=== PATIENT | male | born 1970 | race African-American/Black ===

== ENCOUNTER 2017-11-28 10:53 | Emergency (ER) | payer OTHER ==
--- NOTE | 2017-11-28 11:55 | ED ---
Back Pain - HPI Summary HPI Summary: Patient presents with right lower back pain after "tucking and rolling" in a flag football game yesterday. He slipped which lead to fall - no tackle. Reports he had some Rt lower back and was given Tylenol at [facility] last night with minimal relief. He woke this morning and came to the hospital to have routine labs done and since he is still having pain and stiffness, decided to get his back checked out here in the ED. Reports pain is worse with bending and transitioning from sitting to standing. Patient also radiates on the lateral aspect of his leg not quite to the knee. Denies numbness, tingling, weakness, change in bowel/bladder habits. Has applied Bengay with little relief. No other injuries to report as result of fall. - History of Current Complaint Chief Complaint: EDBackInjuryPain Stated Complaint: BACK PAIN Time Seen by Provider: 11/28/17 11:16 Hx Obtained From: Patient Pain Intensity: 7 - Allergies/Home Medications Allergies/Adverse Reactions: Allergies Allergy/AdvReac Type Severity Reaction Status Date / Time celecoxib [From Celebrex] Allergy See Comment Verified 11/28/17 11:50 lactose Allergy GI Upset Verified 11/28/17 11:50 Penicillins Allergy Anaphylatic Verified 11/28/17 11:50 Shock PMH/Surg Hx/FS Hx/Imm Hx Previously Healthy: Yes Endocrine/Hematology History: Denies: Hx Anticoagulant Therapy, Hx Blood Disorders History: Reports: Other Problems/Disorders - 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 Musculoskeletal History: Reports: Hx Arthritis - spine Sensory History: Reports: Hx Contacts or Glasses Opthamlomology History: Reports: Hx Contacts or Glasses Infectious Disease History: No Infectious Disease History: Denies: Traveled Outside the [place] in Last 30 Days - Family History Known Family History: Positive: Unknown - Social History Occupation: Unemployed Lives: [place] - [facility] Alcohol Use: None Alcohol Amount: h/o - non currently Hx Substance Use: Yes - not currently Substance Use Type: Reports: Cocaine - and ETOH - at [facility] now Substance Use Comment - Amount & Last Used: denies Hx Tobacco Use: Yes Smoking Status (MU): Light Every Day Tobacco Smoker Review of Systems Constitutional: Negative Negative: Fever, Chills, Fatigue Eyes: Negative ENT: Negative Cardiovascular: Negative Respiratory: Negative Gastrointestinal: Negative Genitourinary: Negative Positive: Arthralgia, Myalgia Skin: Negative Neurological: Negative Psychological: Normal All Other Systems Reviewed And Are Negative: Yes Physical Exam Triage Information Reviewed: Yes Vital Signs On Initial Exam: Initial Vitals Temp Pulse Resp BP Pulse Ox 97.3 F 51 16 92/70 100 11/28/17 10:57 11/28/17 10:57 11/28/17 10:57 11/28/17 10:57 11/28/17 10:57 Vital Signs Reviewed: Yes Appearance: Positive: Well-Appearing, Pain Distress - mild - appears uncomfortable sitting in stretcher - cannot get comfortable; antalgic gait Skin: Positive: Warm, Skin Color Reflects Adequate Perfusion, Dry - no erythema , no ecchymosis Eyes: Positive: Normal, EOMI, Conjunctiva Clear ENT: Positive: Normal ENT inspection, Hearing grossly normal, Pharynx normal Neck: Positive: Supple Respiratory/Lung Sounds: Positive: Clear to Auscultation, Breath Sounds Present Cardiovascular: Positive: Normal, Pulses are Symmetrical in both Upper and Lower Extremities. Negative: Leg Edema Left, Leg Edema Right Musculoskeletal: Positive: Strength/ROM Intact - pain in Rt lower back w/ Rt hip abduction, flexion and extension while standing, Pain @ - QL is TTP and SI is TTP Neurological: Positive: Normal, Sensory/Motor Intact, Alert, Oriented to Person Place, Time, CN Intact II-III Psychiatric: Positive: Normal Diagnostics - Vital Signs Vital Signs Temp Pulse Resp BP Pulse Ox 11/28/17 10:57 97.3 F 51 16 92/70 100 - Laboratory Lab Statement: Any lab studies that have been ordered have been reviewed, and results considered in the medical decision making process. Back Pain Course/Dx - Course Course Of Treatment: XR: no acute findings. Exam suspicious for contusion/ strain. Conservative care w/ f/u. Danger s/sx reviewed w/ pt who agrees w/ plan. NSAID's not recommended as pt reports h/o renal injury from celebrex w/ pending court case. May continue acetaminophen and topical analgesics w/ time and rest. - Diagnoses Provider Diagnoses: Lumbar strain Discharge - Sign-Out/Discharge Documenting (check all that apply): Patient Departure - Discharge Plan Condition: Stable Disposition: HOME Prescriptions: Lidocaine PATCH 5%* [Lidoderm 5% Patch*] 1 patch TRANSDERM DAILY PRN #10 patch PRN Reason: Pain Patient Education Materials: Low Back Strain (ED), Lumbar Radiculopathy (ED) Forms: *Work Release Referrals: [facility] [Outside] Additional Instructions: Rest, ice alternate with heat and gentle stretches Continue acetaminophen 650mg every 6 hours with food for pain Topical analgesics - if you had relief with a lidoderm pain patch today, more have been sent to your pharmacy If pain persists, seek follow-up at [facility] - contact information provided here *If you develop numbness, weakness and/or change in bowel/bladder habits, return to ED - Billing Disposition and Condition Condition: STABLE Disposition: Home
--- NOTE | 2017-11-28 12:47 | RAD ---
HISTORY: Rt LBP after rolling on ground COMPARISONS: None VIEWS: 5 , Frontal, lateral, coned-down lateral sacral, and bilateral oblique views of the lumbar spine. FINDINGS: ALIGNMENT: The alignment is normal. VERTEBRAL BODIES: The vertebral body heights are normal. The interpedicular distances are normal. JOINTS: There is mild facet osteoarthritis at L5-S1. INTERVERTEBRAL DISCS: There is mild diffuse loss of intervertebral disc height. SOFT TISSUE: Unremarkable. OTHER: The pelvis is unremarkable. The lung bases are clear. IMPRESSION: MINIMAL DEGENERATIVE CHANGES. NO ACUTE OSSEOUS INJURY. IF SYMPTOMS PERSIST, RECOMMEND REPEAT IMAGING
[2017-11-28 13:16] VITALS: BP 128/69
[2017-11-28] MEDS ORDERED: Lidocaine PATCH 5%* 1 PATCH TRANSDERM SCH (14:00)
== END 2017-11-28 13:15 | disposition home or self-care (01) ==
LOC: ED 10:53
DX: S39.012A Strain of muscle, fascia and tendon of lower back, initial encounter (principal); W01.0XXA Fall on same level from slipping, tripping and stumbling without subsequent striking against object, initial encounter; Y92.9 Unspecified place or not applicable; F17.200 Nicotine dependence, unspecified, uncomplicated; Z88.0 Allergy status to penicillin; Z88.8 Allergy status to other drugs, medicaments and biological substances
CPT/HCPCS: 72110; 99282